=== PATIENT | female | born 2000 | race Two or more races ===

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

== ENCOUNTER 2022-11-10 19:03 | Emergency (ER) | payer OTHER ==
[~2022-11-10] VITALS: Ht 157.5 cm; Wt 61.5 kg
[2022-11-10] MEDS ORDERED: IBU600T PO (21:27)
[2022-11-10 22:00] VITALS: BP 123/70
== END 2022-11-10 22:06 | disposition home or self-care (01) ==
LOC: ER 19:03
DX: N60.11 Diffuse cystic mastopathy of right breast (principal); Z88.0 Allergy status to penicillin; Z88.2 Allergy status to sulfonamides
CPT/HCPCS: 76642